=== PATIENT | female | born 1965 | race American Indian/Alaskan Native ===

== ENCOUNTER 2017-01-24 06:29 | Day surgery (SDC) | payer OTHER ==
[2017-01-19 11:40] VITALS: BMI 36.2
[2017-01-24] MEDS ORDERED: Lidocaine Hydrochloride 5 ML INJ ONE (09:49)
[2017-01-24] MEDS ORDERED: Propofol 10 mg/ml Inj (20 ML) ONE (09:49)
[2017-01-24] MEDS ORDERED: cefOXitin IV 2 gm in Dextrose 2 GM/50 ML BAG IVPB ONE (09:53)
[2017-01-24] MEDS: HYDROmorphone 0.5 mg/0.5 ml ISec IVP PRN ×2 (10:46→11:13)
[2017-01-24 10:57] VITALS: TEMP 97
[2017-01-24 12:02] VITALS: BP 115/80; PULSE 81; RESP 18; O2SAT 98
--- NOTE | 2017-01-24 14:34 | OP ---
PROCEDURE DATE: 01/24/2017 PREOPERATIVE DIAGNOSIS: Menometrorrhagia. POSTOPERATIVE DIAGNOSIS: Fibroid uterus. PROCEDURE: Hysteroscopic myomectomy and dilatation and curettage of the uterus. FINDINGS: 2 cm anterior submucosal myoma. The remainder of the endometrial cavity is normal. SURGEON: Amarjit Jiang MD TYPE OF ANESTHESIA: General. ESTIMATED BLOOD LOSS: Less than 1 mL COMPLICATIONS: Nil. DESCRIPTION OF PROCEDURE: After the risks, benefits and alternatives of the planned procedures including, but not limited to infection, hemorrhage, deep vein thrombosis, atelectasis, pneumonia, pulmonary embolism, damage to bladder, damage to the ureter, renal insufficiency, renal failure, wound infection, wound dehiscence, incisional hernia, keloid formation, damage to large and small intestine, damage to the inferior vena cava and the aorta requiring extensive repair, anesthesia complications, electrolyte imbalance, possibility of , fluid overload, cerebral edema, embolism, and other complications that were discussed, but are not listed above have been explained to the patient and all her questions answered. Informed consent was obtained. The patient was taken to the operating room in a stable condition. Under a suitable level of general anesthesia, she was prepped and draped in a sterile fashion after having been placed in a dorsal lithotomy position. A weighted speculum was inserted into the vagina. The anterior lip of the cervix was crossed using a single tooth tenaculum and endocervical curettage was performed and scant tissue was obtained. The uterus was found at 7 cm. The cervix was dilated to #8 Hanks dilator. A hysteroscope was inserted into the uterus using a MyoSure device, an anterior 3 cm myoma was resected up to the level of the endometrium with good hemostasis. The hysteroscope was then removed, a gentle endometrial curettage was performed, and scant tissue was obtained. The instruments were then removed from the vagina. There was good hemostasis. The patient was then transferred to the recovery room in a stable condition. Sponge, needle and instrument counts were correct x2. There were no complications. Amarjit Jiang MD
== END 2017-01-24 12:52 | disposition home or self-care (01) ==
LOC: C.SDS 06:29
PROVIDERS: ATTEND Obstetrics & Gynecology Reproductive Endocrinology
DX: D25.9 Leiomyoma of uterus, unspecified (principal)
CPT/HCPCS: 36415; 58120; 58561; 86850; 86900; 88305; J0694; J1170; J2405; J2704; J2765; J3010